=== PATIENT | male | born 2000 | race Caucasian/White ===

== ENCOUNTER 2018-06-02 11:26 | Outpatient (CLI) ==
--- NOTE | 2018-06-02 11:56 | DI ---
EXAM: Two views of the chest. History: Precordial chest pain. Findings: Heart size is normal. No focal consolidation. No appreciable pleural fluid and no pneumo thorax. No acute osseous abnormalities. Impression: No acute cardiopulmonary process
== END 2018-06-02 11:27 | disposition home or self-care (01) ==
LOC: LAB 11:26
PROVIDERS: ATTEND Emergency Medicine
DX: R07.2 Precordial pain (principal); S09.90XA Unspecified injury of head, initial encounter
CPT/HCPCS: 36415; 80053; 85025; 93005; 93010